=== PATIENT | female | born 1960 | race Caucasian/White ===

== ENCOUNTER 2023-02-28 07:39 | Day surgery (SDC) | payer BC ==
[~2023-02-28 07:39] MED LIST: Lactated Ringers 1,000 ML IV SCH; Sodium Chloride 0.9% 10 ML Syringe FLUSH PRN; Sodium Chloride 0.9% 10 ML Syringe FLUSH SCH
[2023-02-28] MEDS ORDERED: Propofol 200 MG/20 ML SDV ONE ×2 (08:49→08:52)
[2023-02-28] MEDS ORDERED: fentaNYL 100 MCG/2 ML SDV ONE (08:50)
[2023-02-28] MEDS ORDERED: Lidocaine 1% 4 ML ONE (08:51)
[2023-02-28] MEDS ORDERED: Ondansetron 4 MG/2 ML SDV ONE (09:02)
== END 2023-02-28 09:57 | disposition home or self-care (01) ==
LOC: JD.SDS 07:39
PROVIDERS: ATTEND Specialist
DX: Z12.11 Encounter for screening for malignant neoplasm of colon (principal); M85.80 Other specified disorders of bone density and structure, unspecified site; Z88.2 Allergy status to sulfonamides; Z79.899 Other long term (current) drug therapy
CPT/HCPCS: 45378; J2405; J2704; J3010; J7120; 00812; J3490